=== PATIENT | male | born 1940 | race Caucasian/White ===

== ENCOUNTER 2017-06-12 13:41 | Outpatient (CLI) | payer OTHER ==
[~2017-06-12] VITALS: Ht 162.6 cm; Wt 84.5 kg
[2017-06-12 13:50] VITALS: BP 143/77; PULSE 73; RESP 18; Ht 162.6 cm; Wt 84.5 kg
[2017-06-12] MEDS ORDERED: RANI150T5 PO (14:09)
[2017-06-12] MEDS ORDERED: TAMS0.4C2 PO (14:09)
[2017-06-12] MEDS ORDERED: ATOR10TA65 PO (14:09)
[2017-06-12] MEDS ORDERED: RAMI1.253 PO (14:09)
[2017-06-12] MEDS ORDERED: MTF1000T PO (14:09)
[2017-06-12] MEDS ORDERED: TRAM50TA2 PO (14:09)
[2017-06-12] MEDS ORDERED: FAMO20TA18 PO (14:09)
[2017-06-12] MEDS ORDERED: EMPA10TA PO (14:09)
[2017-06-12] MEDS ORDERED: SITA100T8 PO (14:09)
[2017-06-12] MEDS ORDERED: GLIM1TAB2 PO (14:09)
--- NOTE | 2017-06-12 14:15 | PN ---
Date/Time of Note Date/Time of Note DATE: 06/12/17 TIME: 14:06 Assessment/Plan Assessment/Plan Assessment/Plan [facility] Progress Note Date of Service: 06/12/2017 Today's Impression & Plan: Overall stable and appears improved since his operation. No indication for major post operative complication or wound problems. Minor complaints of occasional nausea and burning sensation with eating should be worked up with laboratory checks which I will order today and follow-up visit with Dr. Badillo and Dr. Salgado. Currently I do not get a sense that we have major postoperative complications. No indication for acute surgical intervention. D/w patient and family and answered all questions. Patient and family appeared to understand and agreed with plans. With above assessment, I've recommended the following for today: 1. Check labs 2. Follow-up with Dr. Badillo for stent removal (no later than August 2017) Thank you again for allowing us to participate in the care of this very pleasant gentleman and his wonderful family. If there are any questions, please feel free to call me at area code [phone]. Nature presenting problem: Moderate risk Complexity decision making: Moderate complexity Please note: Spelling or grammatical errors in this note are likely due to EHR/ dictation systems and are not reflective of patient care quality. Occasional wrong-word or sound-alike substitutions may have occurred due to the inherent limitations of voice recognition software. Please read the chart carefully and recognize, using context, where the substitutions have occurred. The chart may also contain mistakes due to difficulties with voice recognition software. Also please note that the dictation timestamp of this note does not necessarily reflected time of the visit for this service. Updated clinical summary: A very pleasant 77-year-old gentleman with a few comorbidities (see below) presenting with abdominal pain which was likely from his severe gastritis and unlikely to be from his gallbladder or biliary system. Elevated lactic acid levels as well as slightly abnormal LFTs were found. EGD demonstrated severe gastritis. Because liver parameters were slightly abnormal, and MRCP was done which showed choledocholithiasis 05/25/2017. Status post ERCP with removal of stones and stenting 05/26/2017 Dr. Badillo [facility]. Because of the choledocholithiasis, we had the patient on the schedule for laparoscopic cholecystectomy on 05/27/2017, but since his bilirubin was not improving as much as we had thought that he would, I discussed this at length with Dr. Badillo and Dr. Weldon and we all agreed that the safest option for the patient was to wait another 24 hours prior to exposing him to the risk of general anesthesia and a laparoscopic cholecystectomy which we believe he still needed. S/p an uncomplicated but challenging laparoscopic cholecystectomy at [facility] with findings of severe acute on chronic cholecystitis and final pathology report stating acute on chronic cholecystitis with cholelithiasis. Discharged home 05/30/2017. Comorbidities: 1. Severe acute on chronic cholecystitis with cholelithiasis with choledocholithiasis, s/p ERCP and stenting. S/p an uncomplicated but challenging laparoscopic cholecystectomy at [facility] 05/28/17 with findings of severe acute on chronic cholecystitis 2. BMI 34 3. Diabetes; hemoglobin A1c 8 4. Erosive gastritis; status post EGD [facility] 2016 5. Abnormal LFTs; elevated total bilirubin 6. Mild thrombocytopenia,? Chronic versus situational (platelets in the 160s [facility] May 2017) 7. Dyslipidemia (hypercholesterolemia) 8. History of colon cancer, status post resection (? Right hemicolectomy) at [facility] 2013 9. History of sigmoid diverticulosis 10. Status post Port-A-Cath placement (? Still in place) 11. GERD 12. Cholelithiasis (known at least since 2015) 13. History of severe H pylori gastritis, status post EGD 06/15/[address] Rivera at [facility]; plan was for 2 weeks of Prepac treatment 14. Hepatic steatosis (CT [facility] 05/24/17) 15. Coronary arterial and aortoiliac calcifications (CT [facility] 05/24/17) 16. Bibasilar pulmonary emphysema (CT [facility] 05/24/17) 17. Prostate is mildly enlarged (CT [facility] 05/24/17) 18. Status post ERCP with removal of stones and stenting 05/26/2017 Dr. Badillo [facility]. 19. Aortic atherosclerosis Subjective: No major events or complaints overnight except for symptoms of urinary retention. No major pain complaints and reportedly under control with medications. No N/V, SOB or CP at home, but reported having slight nausea during the visit in the office today. + bowel activity. Objective: Vitals: reviewed; please also see EHR Physical Exam: Lungs: breathing comfortably without tachypnea; no audible wheezes, rales or rhonchi on gross exam Abd: Soft, non-tender, and non-distended; no peritoneal signs or guarding. Some of the incision dressings were still in place and I removed them with the underlying incisions c/d/i w/o obvious underlying e/e/d/h Skin: Appears pink and feels warm to touch Neuro: Awake, alert and follows commands appropriately BRENDAN PEDRAZA M.D. Jun 12, 2017 14:15
== END 2017-06-12 17:00 | disposition home or self-care (01) ==
LOC: HPC 13:41
PROVIDERS: ATTEND Transplant Surgery
DX: K80.50 Calculus of bile duct without cholangitis or cholecystitis without obstruction (principal); E11.9 Type 2 diabetes mellitus without complications; E78.5 Hyperlipidemia, unspecified; I70.0 Atherosclerosis of aorta; K21.9 Gastro-esophageal reflux disease without esophagitis; K76.0 Fatty (change of) liver, not elsewhere classified; Z85.038 Personal history of other malignant neoplasm of large intestine
CPT/HCPCS: G0463